=== PATIENT | female | born 1950 | race Caucasian/White ===

== ENCOUNTER 2019-12-07 17:23 | Emergency (ER) | payer MEDICARE, OTHER ==
[2019-12-07 18:10] VITALS: BP 129/73
--- NOTE | 2019-12-07 18:42 | UC ---
Complaint Female HPI - HPI Summary HPI Summary: 68-year-old female who has had urinary frequency and burning since yesterday. She denies any fever or chills. - History Of Current Complaint Chief Complaint: UCGU Stated Complaint: URINARY Time Seen by Provider: 12/07/19 18:15 Hx Obtained From: Patient ?: No Onset/Duration: Gradual Onset Timing: Intermittent Severity Initially: Mild Severity Currently: Mild Pain Intensity: 3 Character: Burning Aggravating Factor(s): Urination Alleviating Factor(s): Nothing Associated Signs And Symptoms: Positive: Negative - Allergies/Home Medications Allergies/Adverse Reactions: Allergies Allergy/AdvReac Type Severity Reaction Status Date / Time Sulfa (Sulfonamide Allergy See Comment Verified 12/07/19 18:11 Antibiotics) Tetracyclines Allergy See Comment Verified 12/07/19 18:11 Home Medications: Home Medications Albuterol HFA INHALER* [Ventolin HFA Inhaler*] 1 puff INH Q4H PRN 12/07/19 [ History Confirmed 12/07/19] PMH/Surg Hx/FS Hx/Imm Hx Previously Healthy: Yes - Surgical History Surgical History: Yes Surgery Procedure, Year, and Place: hyster. tonsils. cataracts/detached retina - Family History Known Family History: Positive: Non-Contributory - Social History Alcohol Use: Occasionally Substance Use Type: None Smoking Status (MU): Never Smoked Tobacco Review of Systems All Other Systems Reviewed And Are Negative: Yes Genitourinary: Positive: Dysuria, Frequency, Urgency Is Patient Immunocompromised?: No Physical Exam Triage Information Reviewed: Yes Appearance: Well-Appearing, No Pain Distress, Well-Nourished Vital Signs: Initial Vital Signs Temp 97.6 F 12/07/19 18:04 Pulse 75 12/07/19 18:04 Resp 18 12/07/19 18:04 BP 129/73 12/07/19 18:04 Pulse Ox 98 12/07/19 18:04 Vital Signs Reviewed: Yes Respiratory: Positive: Lungs clear, Normal breath sounds, No respiratory distress, No accessory muscle use Cardiovascular: Positive: RRR, No Murmur, Pulses Normal, Brisk Capillary Refill Abdomen Description: Positive: Nontender, No Organomegaly, Soft. Negative: CVA Tenderness (R), CVA Tenderness (L), Distended, Guarding, Hepatomegaly, Splenomegaly Bowel Sounds: Positive: Present Musculoskeletal Exam: Normal Neurological Exam: Normal Psychological Exam: Normal Skin Exam: Normal Complaint Female Dx - Course Course Of Treatment: Urinalysis was positive with leukocytes. Patient is comfortable here and nontoxic. I did give her a prescription for Diflucan because occasionally she will get a yeast infection with antibiotic use. The patient states the only antibiotic that does not give her a yeast infection is amoxicillin however we discussed the efficacy of amoxicillin for urinary tract infections in older women and she is willing to try the cephalexin instead. - Differential Dx/Diagnosis Provider Diagnosis: UTI (urinary tract infection) Discharge ED - Sign-Out/Discharge Documenting (check all that apply): Patient Departure All imaging exams completed and their final reports reviewed: No Studies - Discharge Plan Condition: Good Disposition: HOME Prescriptions: Cephalexin CAP* [Keflex 500 CAP*] 500 mg PO TID 10 Days #30 cap Fluconazole 150 MG TAB* [Diflucan 150 MG TAB*] 150 mg PO UC ONCE 1 Days #1 tablet Patient Education Materials: Urinary Tract Infection in Women (DC) Referrals: No Primary Care Phys,NOPCP [Primary Care Provider] - [facility] [Outside] Additional Instructions: Increase fluids, follow-up with your primary care provider if no improvement by Thursday. Go to the emergency room if you develop fever, chills, worsening back pain or vomiting and can't keep medicine down. - Billing Disposition and Condition Condition: GOOD Disposition: Home
== END 2019-12-07 18:52 | disposition home or self-care (01) ==
LOC: UCCORT 17:23
DX: N39.0 Urinary tract infection, site not specified (principal); Z88.2 Allergy status to sulfonamides; Z88.1 Allergy status to other antibiotic agents
CPT/HCPCS: 81003; 87086; 99202; G0463